=== PATIENT | male | born 1955 | race Caucasian/White ===

== ENCOUNTER 2017-06-11 12:46 | Emergency (ER) | payer BC ==
[2017-06-11] MEDS ORDERED: Aspirin Low Dose CHEW TAB* 81 MG PO ONE (14:17)
[2017-06-11 15:04] VITALS: BP 150/93
--- NOTE | 2017-07-01 09:29 | UC ---
Larry Valera Benjamin, scribed for Danyelle Piper DO on 06/11/17 at 1410 . Abdominal Pain Female HPI - HPI Summary HPI Summary: 62yo male c/o dull LUQ and left rib pain since a few days. Pt thought he bumped into something at first deep breath and movement makes the pain sharp and also worse. Pt denies fever, chills, N/V, MORROW, dizziness, neck pain, sore throat, ear aches, or coughing. PMHx of HTN. FHx of HTN and CA.. - History of Current Complaint Chief Complaint: UCAbdominalPain Stated Complaint: SIDE ABDOMINAL PAIN Time Seen by Provider: 06/11/17 13:57 Hx Obtained From: Patient Onset/Duration: Gradual Onset, Lasting Days, Still Present Timing: Constant Severity Initially: Mild Severity Currently: Mild Location: Discrete At: LUQ Character: Dull Aggravating Factor(s): Movement, Deep Breaths Alleviating Factor(s): Nothing Associated Signs and Symptoms: Positive: Negative, Other: - left rib pain. Negative: Diaphoresis, Fever, Dizzy, Back Pain, Nausea, Vomiting, Diarrhea Allergies/Adverse Reactions: Allergies Allergy/AdvReac Type Severity Reaction Status Date / Time No Known Allergies Allergy Verified 06/11/17 12:57 Home Medications: Home Medications ALPRAZolam TAB* [Xanax TAB*] 0.5 mg PO Q8H PRN 06/11/17 [History Confirmed 06/11] Fluvoxamine (NF) [Luvox (NF)] 100 mg PO 06/11/17 [History] Loratadine [Claritin 10 MG CAP] 10 mg PO 06/11/17 [History] lamoTRIgine TAB(*) [Lamictal TAB(*)] 06/11/17 [History] PMH/Surg Hx/FS Hx/Imm Hx Cardiovascular History: Hypertension Psychological History: Anxiety, Depression - Surgical History Surgical History: Yes Surgery Procedure, Year, and Place: 2005 RIGHT INGUINAL HERNIA, [facility]. 1994 [place]HOIDECTOMY, [facility]. 2012 BILATERAL CARPAL TUNNEL RELEASE, [facility] [place]. 2012 HEART CATHERIZATION, [facility] [place]. 2008 & 2013 COLONOSCOPY, [facility] [place] - Family History Known Family History: Positive: Hypertension, Other - CA Negative: Cardiac Disease, Diabetes - Social History Occupation: Retired Lives: With Family Alcohol Use: Weekly Substance Use Type: None Smoking Status (MU): Never Smoked Tobacco Review of Systems Constitutional: Negative Skin: Negative Eyes: Negative ENT: Negative Respiratory: Negative Cardiovascular: Negative Gastrointestinal: Abdominal Pain - LUQ Genitourinary: Negative Motor: Negative Neurovascular: Negative Musculoskeletal: Myalgia - left rib pain Neurological: Negative Psychological: Negative All Other Systems Reviewed And Are Negative: Yes Physical Exam Triage Information Reviewed: Yes Appearance: Well-Appearing, No Pain Distress, Obese Vital Signs: Initial Vital Signs Temp 98.5 F 06/11/17 12:51 Pulse 70 06/11/17 12:51 Resp 16 06/11/17 12:51 BP 130/92 06/11/17 12:51 Pulse Ox 98 06/11/17 12:51 Eyes: Positive: Conjunctiva Clear. Negative: Discharge ENT: Positive: Normal ENT inspection, Hearing grossly normal. Negative: Muffled /hoarse voice Neck: Positive: Supple, Nontender Respiratory: Positive: Lungs clear, Normal breath sounds, No respiratory distress, No accessory muscle use Cardiovascular: Positive: RRR, No Murmur Abdomen Description: Positive: Soft. Negative: Nontender - Tenderness to palpation over the costophrenic border on the left. However, pushing the back of the costovertebral angle of that rib did not elicit any pain Musculoskeletal Exam: Normal Musculoskeletal: Positive: Strength Intact, ROM Intact Neurological Exam: Normal Neurological: Positive: Alert, Muscle Tone Normal Psychological Exam: Normal Psychological: Positive: Age Appropriate Behavior Skin Exam: Normal - mild to moderated Skin: Negative: rashes Diagnostics - EKG Cardiac Rate: NL - 66bpm Cardiac Rhythm: Sinus: Normal - Minimal ST evelation at VII and VIII ST Segment: Non-Specific Abd Pain Female Course/Dx - Course Course Of Treatment: Reviewed pts list of medications and allergies. High blood pressure noted. - Differential Dx/Diagnosis Provider Diagnoses: chest pain Discharge - Discharge Plan Condition: Stable Disposition: TRANS HIGHER LVL OF CARE FAC Referrals: Dru Bettencourt MD [Primary Care Provider] - The documentation as recorded by the Larry albrecht Benjamin accurately reflects the service I personally performed and the decisions made by , Danyelle Piper DO.
== END 2017-06-11 14:50 | disposition short-term general hospital (02) ==
LOC: UCEAST 12:46
DX: R07.89 Other chest pain (principal); R10.12 Left upper quadrant pain; R07.81 Pleurodynia; I10 Essential (primary) hypertension; F41.9 Anxiety disorder, unspecified; E66.9 Obesity, unspecified
CPT/HCPCS: 93005; 99213; A9270-GY; G0463

== ENCOUNTER 2018-05-06 14:18 | Emergency (ER) | payer BC ==
[2018-05-06] MEDS ORDERED: NS 0.9% 1000 ML* 1,000 ML IV ONE (14:47)
--- NOTE | 2018-05-06 14:52 | ED ---
GI/ HPI - HPI Summary HPI Summary: Pt is a 63 y/o male who presents to the ED c/o N/V since this morning. He states he is not able to keep any food down due to the vomiting. Pt took Zofran and Compazine for the symptoms. He also c/o constipation and acute on chronic back pain. Pt denies any abdominal pain or gas. Pt has metastatic lung cancer that has cause liver lesions, and is currently undergoing immunotherapy under Dr. Bubba simmons. He states he was in a lot of pain last night, and took some Morphine. - History of Current Complaint Chief Complaint: EDNauseaVomitDiarrh Time Seen by Provider: 05/06/18 14:37 Stated Complaint: BACK PAIN,N/V Hx Obtained From: Patient Onset/Duration: Started Hours Ago - This morning, Still Present Timing: Constant Current Severity: Severe Pain Intensity: 8 Location of Pain: Other - Back Pain Characteristics: Sharp, Aching Associated Signs and Symptoms: Positive: Nausea, Vomiting - Allergy/Home Medications Allergies/Adverse Reactions: Allergies Allergy/AdvReac Type Severity Reaction Status Date / Time No Known Allergies Allergy Verified 04/26/18 11:20 Home Medications: Home Medications Morphine Sulfate 15 mg PO 05/06/18 [History] Ondansetron TAB* [Zofran 4 MG Tab*] 8 mg PO Q6H PRN 05/06/18 [History Confirmed 05/06/18] Prochlorperazine TAB* [Compazine Tab*] 10 mg PO Q8H PRN 05/06/18 [History Confirmed 05/06/18] PMH/Surg Hx/FS Hx/Imm Hx Endocrine/Hematology History: Denies: Hx Diabetes, Hx Sickle Cell Disease, Hx Thyroid Disease, Hx Anemia Cardiovascular History: Reports: Hx Hypertension, Hx Peripheral Vascular Disease - VARICOSE VEINS, Other Cardiovascular Problems/Disorders - COMPRESSION STOCKING RIGHT LEG FOR PHLEBITIS/VARICOSE VEINS Denies: Hx Pacemaker/ICD Respiratory History: Reports: Hx Sleep Apnea, Other Respiratory Problems/ Disorders - FOLLOWUP FOR PNEUMONIA Denies: Hx Asthma, Hx Chronic Obstructive Pulmonary Disease (COPD) GI History: Denies: Hx Ulcer, Other GI Disorders History: Denies: Hx Renal Disease, Other Problems/Disorders Musculoskeletal History: Reports: Hx Arthritis - Osteoarthritis, Hx Tendonitis - 2014 RIGHT TENNIS ELBOW TREATED WITH PT Denies: Hx Scoliosis, Other Musculoskeletal History Sensory History: Reports: Hx Contacts or Glasses - GLASSES Denies: Hx Hearing Aid Opthamlomology History: Reports: Hx Contacts or Glasses - GLASSES Psychiatric History: Reports: Hx Anxiety - HAS MEDICATION PRN, Hx Depression - HAS MEDICATION Denies: Hx Panic Disorder - Cancer History Cancer Type, Location and Year: LIVER/LUNG-TAKING OPTIVO - Surgical History Surgery Procedure, Year, and Place: 2004 RIGHT INGUINAL HERNIA, [facility]. [facility] 2012 BILATERAL CARPAL TUNNEL RELEASE, [facility] [place]. 2011 HEART CATHERIZATION, [facility] [place]. 2008 & 2014 COLONOSCOPY, [facility] [place] Hx Anesthesia Reactions: No - Immunization History Date of Tetanus Vaccine: < 10 years Date of Influenza Vaccine: [id number] Immunizations Up to Date: Yes Infectious Disease History: No Infectious Disease History: Denies: Hx Hepatitis, Hx Human Immunodeficiency Virus (HIV), Traveled Outside the in Last 30 Days - Family History Known Family History: Negative: Hypertension, Diabetes - Social History Alcohol Use: Occasionally Alcohol Amount: wine on weekends Hx Substance Use: No Substance Use Type: Reports: None Hx Tobacco Use: No Smoking Status (MU): Never Smoked Tobacco Review of Systems Positive: Vomiting, Nausea, Other - Constipation. Negative: Abdominal Pain Musculoskeletal: Other - Back pain All Other Systems Reviewed And Are Negative: Yes Physical Exam - Summary Physical Exam Summary: Appearance: Chronically ill appearing, no pain distress Skin: warm, dry, reflects adequate perfusion Head/face: normal Eyes: EOMI, RADHA ENT: dry mucous membranes Neck: supple, non-tender Respiratory: CTA, breath sounds present Cardiovascular: RRR, pulses symmetrical Abdomen: non-tender, soft Bowel: present Musculoskeletal: normal, strength/ROM intact Neuro: normal, sensory motor intact, A&Ox3 Triage Information Reviewed: Yes Vital Signs On Initial Exam: Initial Vitals Temp Pulse Resp BP Pulse Ox 97.6 F 83 16 152/93 96 05/06/18 14:35 05/06/18 14:35 05/06/18 14:35 05/06/18 14:35 05/06/18 14:35 Vital Signs Reviewed: Yes Diagnostics - Vital Signs Vital Signs Temp Pulse Resp BP Pulse Ox 05/06/18 14:35 97.6 F 83 16 152/93 96 - Laboratory Result Diagrams: 05/06/18 15:31 05/06/18 15:31 Lab Statement: Any lab studies that have been ordered have been reviewed, and results considered in the medical decision making process. - Radiology CXR Xray Interpretation: No Acute Changes - 1. NO EVIDENCE FOR ACUTE FINDING. 2. THERE IS A FAINT NODULAR DENSITY NOTED AT THE LEFT LUNG BASE WHICH APPEARS TO CORRELATE WITH THE PLEURAL-BASED NODULE NOTED ON THE PRIOR CT OF THE CHEST. ED physician reviewed radiology report. Radiology Interpretation Completed By: Radiologist Abdomen XR Xray Interpretation: Positive (See Comments) - Hepatomegaly. Negative for bowel obstruction or free air. Moderately large volume of stool in the colon. ED physician reviewed radiology report. Radiology Interpretation Completed By: Radiologist - EKG 15:19 Cardiac Rate: NL - 76 bpm EKG Rhythm: Sinus Rhythm EKG Interpretation: No acute changes. Re-Evaluation - Re-Evaluation First Eval Re-Evaluation Time: 19:00 Change: Improved Comment: Pt feels better after fleet enema. GIGU Course/Dx - Course Course Of Treatment: Pt is a 63 y/o male who presents to the ED c/o N/V since this morning. Pt took Zofran and Compazine for the symptoms. He also c/o constipation and acute on chronic back pain. Pt denies any abdominal pain or gas. Pt has metastatic lung cancer that has cause liver lesions, and is currently undergoing immunotherapy under Dr. Mac care. A physical exam revealed chronically ill appeared. A CXR revealed NO EVIDENCE FOR ACUTE FINDING. THERE IS A FAINT NODULAR DENSITY NOTED AT THE LEFT LUNG BASE WHICH APPEARS TO CORRELATE WITH THE PLEURAL-BASED NODULE NOTED ON THE PRIOR CT OF THE CHEST. An abdomen XR revealed Negative for bowel obstruction or free air. Moderately large volume of stool in the colon. An EKG revealed a normal rate of 76 bpm. Pt felt better after a fleet enema. Spoke to Dr. Do who said to give pt fluids then discharge. Final dx are nausea and vomiting, constipation, and lung cancer with metastasis. Pt will be discharged and is agreeable with this plan. - Diagnoses Differential Diagnoses - Male: Bowel Obstruction - constipation/uti, Dehydration Provider Diagnoses: Nausea & vomiting, Constipation, Metastatic primary lung cancer - Physician Notifications Discussed Care Of Patient With: David Do Time Discussed With Above Provider: 17:05 Instructed by Provider To: Other - Recommended to give pt fluids and to discharge. Discharge - Sign-Out/Discharge Documenting (check all that apply): Patient Departure - Discharge - Discharge Plan Condition: Stable Disposition: HOME Patient Education Materials: Constipation (ED), Acute Nausea and Vomiting (ED) Referrals: Dru Bettencourt MD [Primary Care Provider] - 3 Days Additional Instructions: RETURN TO THE ED WITH ANY NEW OR WORSENING SYMPTOMS. - Billing Disposition and Condition Condition: STABLE Disposition: Home - Attestation Statements Document Initiated by Scribe: Yes Documenting Scribe: Janis Gillespie Provider For Whom Nazario is Documenting (Include Credential): Trevon Hinkle MD Scribe Attestation: Janis Valera, scribed for Trevon Hinkle MD on 05/06/18 at 1940. Scribe Documentation Reviewed: Yes Provider Attestation: The documentation as recorded by the Janis albrecht accurately reflects the service I personally performed and the decisions made by Trevon garduno MD
[2018-05-06 15:39] LABS: ABS Basophils 0 10^3/ul (0-0.2); ABS Eosinophils 0 10^3/ul (0-0.6); ABS Lymphocytes 0.6 10^3/ul (1.0-4.8); ABS Monocytes 0.5 10^3/ul (0-0.8); ABS Neutrophils 5.5 10^3/ul (1.5-7.7); ABS Nucleated RBC 0 10^3/ul; Eosinophil % 0 % (0-6); Hematocrit 46 % (42-52); Hemoglobin 15.3 g/dl (14.0-18.0); Lymphocyte % 8.3 % (25-47); Mean Corpuscular HGB Conc 34 g/dl (31-36); Mean Corpuscular Hemoglobin 28 pg (27-31); Mean Corpuscular Volume 85 fL (80-94); Mean Platelet Volume 8.5 um3 (7.4-10.4); Nucleated Red Blood Cells % 0; Platelet Count 183 10^3/ul (150-450); Red Blood Count 5.39 10^6/ul (4.00-5.40); Red Cell Distribution Width 17 % (10.5-15); White Blood Count 6.7 10^3/ul (3.5-10.8)
[2018-05-06 15:49] LABS: Urine Appearance Cloudy; Urine Blood Negative (Negative); Urine Color Amber; Urine Ketones 1+ (Negative); Urine Protein 2+(100 mg/dL) (Negative); Urine Red Blood Cell 2+(6-10/hpf) (Absent); Urine Specific Gravity 1.027 (1.010-1.030); Urine Urobilinogen Negative (Negative); Urine White Blood Cell Trace(0-5/hpf) (Absent)
[2018-05-06 15:51] LABS: INR 0.98 (0.77-1.02)
[2018-05-06 16:00] LABS: EGFR Non-African American 88.6 (>60)
[2018-05-06] MEDS ORDERED: Ondansetron INJ* 2 MG/ML VIAL IV ONE (16:15)
[2018-05-06] MEDS ORDERED: Ondansetron INJ* 2 MG/ML VIAL ONE (16:15)
--- NOTE | 2018-05-06 16:35 | RAD ---
Indication: Vomiting. History of LEFT lung cancer diagnosed in September 2017. L4 compression fracture. Comparison: April 26, 2018 CT. May 06, 2018 chest radiograph. Technique: Supine and upright views of the abdomen. Report: Negative for free air beneath the diaphragm. Hepatomegaly. Negative for dilated bowel loops. Moderately large volume of stool within the colon. No suspicious calcifications evident. Unremarkable paraspinal soft tissue contours. No gross loss of height evident at the L4 vertebral body. No suspicious osseous lesions visible. IMPRESSION: #. Hepatomegaly. #. Negative for bowel obstruction or free air. #. Moderately large volume of stool in the colon.
--- NOTE | 2018-05-06 16:36 | RAD ---
INDICATION: Vomiting. COMPARISON: Comparison is made with a prior chest x-ray study from July 20, 2017. Correlation is also made with a prior CT of the chest from April 26, 2018. TECHNIQUE: Dual-energy PA and lateral views of the chest were obtained. FINDINGS: The heart is within normal limits in size. Mediastinal and hilar contours appear within normal limits. There is a central venous catheter present on the right side. The catheter tip projects at the superior vena cava atrial junction. There is a faint nodular density which projects above the left lung base which appears to correlate with the pleural-based nodule noted on the prior CT of the chest. The lungs are otherwise clear. No pleural effusion is seen. IMPRESSION: 1. NO EVIDENCE FOR ACUTE FINDING. 2. THERE IS A FAINT NODULAR DENSITY NOTED AT THE LEFT LUNG BASE WHICH APPEARS TO CORRELATE WITH THE PLEURAL-BASED NODULE NOTED ON THE PRIOR CT OF THE CHEST
[2018-05-06 16:38] VITALS: BP 138/91
[2018-05-06] MEDS ORDERED: Ketorolac INJ* 30 MG/ML 1 ML VIAL ONE (17:34)
[2018-05-06] MEDS ORDERED: Ketorolac INJ* 30 MG/ML 1 ML VIAL IM ONE (17:36)
[2018-05-06] MEDS ORDERED: Ketorolac INJ* 30 MG/ML 1 ML VIAL IV PUSH ONE (17:38)
[2018-05-06] MEDS ORDERED: Sodium Phosphate ADULT ENEMA* 118 ml bottle PR ONE (17:43)
== END 2018-05-06 19:57 | disposition home or self-care (01) ==
LOC: ED 14:18
DX: R11.2 Nausea with vomiting, unspecified (principal); K59.00 Constipation, unspecified; C34.90 Malignant neoplasm of unspecified part of unspecified bronchus or lung; Z51.12 Encounter for antineoplastic immunotherapy; M54.9 Dorsalgia, unspecified
CPT/HCPCS: 36415; 71046; 74019; 80053; 81003; 81015; 83605; 83690; 84484; 85025; 85610; 85730; 87086; 93005; 96372; 96374; 96375; 99283; A9270-GY; J1642; J1885; J2405